=== PATIENT | female | born 1955 | race Caucasian/White ===

== ENCOUNTER 2022-06-28 15:50 | Outpatient (REF) | payer MEDICARE, MEDICAID, SELFPAY ==
--- NOTE | 2022-06-28 16:26 | MHC.AU.HFU ---
Hearing Instrument Follow-Up- Binaural Date of Visit: 06/28/22 Right Ear: Compo Caster: Phonak Model: Tradonoero Q 50-M13 Serial Number: [id number] Repair Warranty: 2016: Battery Size: 13 Tubing: #1 slim tube Type of Dome: Medium Open Dispensed By: [facility] Date of Fittin07/21/2014 Left Ear: Compo Caster: Phonak Model: Bolero Q 50-M13 Serial Number: [id number] Repair Warranty: 2016 Battery Size: 13 Tubing: #1 slim tube Type of Dome: Medium Open Dispensed By: [facility] Date of Fittin07/21/2014 Follow-Up Summary: Patient had lost her hearing aids in the process of moving to several places over the past 3 years and just recently found them. Changed slim tubes and domes, cleaned microphones and contacts. Both aids amplifying clearly. Recommendations: Advise audiologic re-evaluation and patient will contact PCP to have order faxed. Advise new hearing aids as her current aids are 8 years old. Diagnosis Code(s): Primary Diagnosis: H90.3 Bilateral Sensorineural Hearing Loss Services Performed: Number of Individual Battery Cells: 42 MENDEZ Non-Quantity Charges: HACHECKB (MH>1 yr or new to us) Face to face appointment Signature:Provider: Melissa Briceno, CCC-A
== END 2022-06-28 15:51 | disposition home or self-care (01) ==
LOC: HO.HAP 15:50
PROVIDERS: Visit Provider Family Medicine
DX: Z46.1 Encounter for fitting and adjustment of hearing aid (principal); H90.3 Sensorineural hearing loss, bilateral
CPT/HCPCS: 92593; V5266

== ENCOUNTER 2022-10-08 12:26 | Outpatient (REF) | payer MEDICARE, MEDICAID, SELFPAY ==
--- NOTE | 2022-10-08 13:20 | MHC.AU.MED ---
Medical Clearance for Hearing Instrumentation Date: 10/08/22 Patient Name: Rosemary Kinsey Date of : 1955 Primary Care Provider: Chandu Painter MD We have seen your patient on 10/08/22 and have determined that they are a candidate for amplification (See accompanying report). Specifically, they would benefit from: Hearing aid use in both ears There is a statute that addresses Medical Evaluation Requirements prior to fitting a patient with a hearing aid. According to [place] statute 265 CMR:6.03(1), (a) General. Except as provided in 265 CMR 6.03(1)(b), a bridge instructor shall not sell a hearing aid unless the prospective user has presented to the bridge instructor a written statement signed by a licensed physician that states that the patient's hearing loss has been medically evaluated and the patient may be considered a candidate for a hearing aid. The medical evaluation must have taken place within the preceding six months. Please note: Due to the [place] Statute referenced above, we cannot accept a signature other than that of a licensed physician. DELI/BAKERY ASSOCIATE and PA signatures cannot be accepted. I am in agreement with the above recommendation. There is no medical contraindication for hearing instrumentation. Physician Signature Date Physician Name (Printed)
--- NOTE | 2022-10-08 13:25 | MHC.AU.HA3 ---
Hearing Instrument Follow-Up- Binaural Date of Visit: 10/08/22 Right Ear: Make, Model, Color, Serial Number: Mckinley Lombardi Q50-M13 SN: [id number] Color: Sherley Beige Traveling Engineer Repair Warranty: 2015 Battery Size: 13 Communication Skills Instructor/Slim Tube: #1 slim tube Earmold/Dome/CShell/SlimTip:Medium open dome Dispensed By: [facility] Date of Fittin07/21/2014 Left Ear: Kee, Model, Color, Serial Number: Mckinley Lombardi Q50-M13 SN: [id number] Color: Sherley Beige Traveling Engineer Repair Warranty: 2015 Battery Size: 13 Communication Skills Instructor/Slim Tube: #1 slim tube Earmold/Dome/CShell/SlimTip: Medium vented dome Dispensed By: [facility] Date of Fittin07/21/2014 Follow-Up Summary: Rosemary reported her right hearing aid is not working. Wax plugging end of tubing and in dome. Cleaned both hearing aids and tubing. Vacuumed microphones. Replaced domes. A listening check demonstrated that both hearing aids are working well. Discussed new hearing aids due to age of current pair (see Hearing Aid Evaluation note). Recommendations: Hearing instrument maintenance in 6 months, or sooner if needed. Please contact our clinic with any questions or concerns. Diagnosis Code(s): Primary Diagnosis: H90.3 Bilateral Sensorineural Hearing Loss Signature: Provider: Abida Langford, [facility]
--- NOTE | 2022-10-08 13:32 | MHC.AU.HA1 ---
Hearing Aid Evaluation Date of Visit: 10/08/22 Historical Information:Description of Hearing: Within normal sloping to severe sensorineural hearing loss, bilaterally. Left ear worse than right ear from [id number] Hz Current personal amplification information: Phonak Bolero Q50-M13 slim tube hearing aids, purchased in July 2014 Summary: Rosemary is interested in pursuing upgraded hearing aid technology due to the age of her current pair. She is interested in rechargeable hearing aids with bluetooth compatibility to help with phone calls. She has noticed that recently she is asking for more repetition and feels as though she is not hearing as well even with her hearing aids. She is hoping new hearing aids, with improvements in the noise management systems, will also help in noisy environments. Hearing Aid Prescription: Based on the individual?s shared listening needs, communication environments, dexterity, desire for connectivity, and personal preferences, the following prescription for amplification has been made: Right ear: Make, Model, Color: Phonak Audeo P70-R Color: [place]agn[place]ana Battery Size: Rechargeable Chancery Clerk/Slim Tube: 1M Type of Earmold/Dome/CShell/SlimTip: Medium open dome Left ear:Left ear prescription to be same as Right Hearing Aid above: Make, Model, Color: Phonak Audeo P70-R Color: Champagne Battery Size: Rechargeable Chancery Clerk/Slim Tube: 1M Type of Earmold/Dome/CShell/SlimTip: Medium vented dome Plan of Care: Patient wishes to purchase hearing aids as prescribed Action Taken/Action Needed:Medical Clearance to be requested from PCP/ENT; Hearing Instrument Fitting to be scheduled when materials arrive Primary Diagnosis: H90.3 Bilateral Sensorineural Hearing Loss Signature: Provider: Abida Langford, [facility]
== END 2022-10-08 12:27 | disposition home or self-care (01) ==
LOC: HO.SH 12:26
PROVIDERS: Visit Provider Family Medicine
DX: Z01.118 Encounter for examination of ears and hearing with other abnormal findings (principal); Z46.1 Encounter for fitting and adjustment of hearing aid; H90.3 Sensorineural hearing loss, bilateral
CPT/HCPCS: 92557; 92591; 92593

== ENCOUNTER 2022-11-06 14:51 | Outpatient (REF) | payer MEDICAID, SELFPAY ==
--- NOTE | 2022-11-06 16:47 | MHC.AU.HA2 ---
Hearing Instrument Fitting- Adult- Binaural Date of Visit: 11/06/22 Hearing Instruments Dispensed: Right Ear: Kee, Model, Color, Serial Number: Mckinley Rodriguezo P70-R SN: [id number] Color: Kylah SN [id number] Anesthesiology Tech Repair Warranty: 01/28/2026 Anesthesiology Tech Loss and Damage Warranty: 01/28/2026 [facility] Service Plan: 11/06/2023 Battery Size: Rechargeable Sanding Machine Tender Automatic/Slim Tube: 1M 4.0 Earmold/Dome/CShell/SlimTip: Small open dome Type of Wax Guard: CeruSheild Disk Left Ear: Kee, Model, Color, Serial Number: Mckinley Rodriguezo P70-R SN: [id number] Color: Kylah Anesthesiology Tech Repair Warranty: 01/28/2026 Anesthesiology Tech Loss and Damage Warranty: 01/28/2026 [facility] Service Plan: 11/06/2023 Battery Size: Rechargeable Sanding Machine Tender Automatic/Slim Tube: 1M 4.0 Earmold/Dome/CShell/SlimTip: Small vented dome Type of Wax Guard: CeruSheild Accessories/Assistive Technology: Phonak Automatic Centrifugal Station Operator Ease w EPS Summary of Fitting: Feedback manager site and real-ear measurements performed. Decreased acclimatization level to 80% and occlusion compensation to weak at patient's request due to perceived loudness. As a long-time hearing aid use, Rosemary had no issues inserting/removing hearing aids or manipulating them. Reviewed care, use, and rechargeability including manually turning on/off and volume control use. Paired to cellphone. Discussed importance of full-time consistent use. Recommendations: A hearing instrument follow-up was scheduled. Diagnosis Code(s): Primary Diagnosis: H90.3 Bilateral Sensorineural Hearing Loss Signature: Provider: Abida Langford, [facility]
== END 2022-11-06 14:52 | disposition home or self-care (01) ==
LOC: HO.HAP 14:51
PROVIDERS: Visit Provider Family Medicine
DX: Z46.1 Encounter for fitting and adjustment of hearing aid (principal); H90.3 Sensorineural hearing loss, bilateral
CPT/HCPCS: V5011; V5020; V5160; V5261

== ENCOUNTER 2023-10-02 14:17 | Outpatient (REF) | payer MEDICARE, MEDICAID, SELFPAY ==
--- NOTE | 2023-10-02 14:48 | MHC.AU.HA3 ---
Hearing Instrument Follow-Up- Binaural Date of Visit: 10/02/23 Right Ear: Kee, Model, Color, Serial Number: Mckinley Byers L70-R SN: [id number] Color: Kylah SN [id number] Toe Puncher Repair Warranty: 01/28/2026 Toe Puncher Loss and Damage Warranty: 01/28/2026 [facility] Service Plan: 11/06/2023 Battery Size: Rechargeable Corn Chip Maker/Slim Tube: 1M 4.0 Earmold/Dome/CShell/SlimTip:Small open dome Type of Wax Guard: CeruSheild Disk Dispensed By: [facility] Left Ear: Kee, Model, Color, Serial Number: Mckinley Byers L70-R SN: [id number] Color: Kylah Toe Puncher Repair Warranty: 01/28/2026 Toe Puncher Loss and Damage Warranty: 01/28/2026 [facility] Service Plan: 11/06/2023 Battery Size: Rechargeable Corn Chip Maker/Slim Tube: 1M 4.0 Earmold/Dome/CShell/SlimTip: Small older style closed Phonak dome Type of Wax Guard: CeruSheild Dispensed By: [facility] Follow-Up Summary: Rosemary reports her left hearing aid is not working, and feels neither of them have been loud enough since her initial fitting. Cleaned both aids, both were quite clogged with wax. Listening check ok after cleaning. Otoscopy shows nonoccluding cerumen bilaterally. Increased gain to 90%, which she felt sounded comfortable. Changed left dome to older phonak style small dome for better comfort and retention. Recommendations: Recommendations: Patient will call if problems persist. Diagnosis Code(s): Primary Diagnosis: H90.3 Bilateral Sensorineural Hearing Loss Signature: Provider: Torito Malcolm, CCC-A
== END 2023-10-02 14:18 | disposition home or self-care (01) ==
LOC: HO.HAP 14:17
PROVIDERS: Visit Provider Family Medicine
DX: Z13.89 Encounter for screening for other disorder (principal)